=== PATIENT | female | born 1950 | race Caucasian/White ===

== ENCOUNTER 2021-04-17 09:45 | Emergency (ER) | payer MEDICAID ==
[~2021-04-17] VITALS: Ht 162.6 cm; Wt 72.7 kg
[2021-04-17] MEDS ORDERED: LISI-892 PO (09:57)
[2021-04-17] MEDS ORDERED: ATOR10TA84 PO (09:57)
[2021-04-17 11:08] LABS: BASOPHILS % (AUTO) 0.8 % (0.0-2.0); EOSINOPHILS % (AUTO) 4.4 % (1.0-6.0); HEMATOCRIT 36.2 % (36-46); HEMOGLOBIN 12.1 g/dL (12.0-16.0); LYMPHOCYTES # (AUTO) 1.8 K/uL (1.0-4.8); LYMPHOCYTES % (AUTO) 32.1 % (22.0-44.0); MEAN CORPUSCULAR HEMOGLOBIN 29.6 pg (26.0-34.0); MEAN CORPUSCULAR HGB CONC 33.4 G/dL (31.0-37.0); MEAN CORPUSCULAR VOLUME 89 fL (80-100); MONOCYTES # (AUTO) 0.4 K/uL (0.1-1.0); MONOCYTES % (AUTO) 7.4 % (2.0-9.0); NEUTROPHILS % (AUTO) 55.3 % (40.0-70.0); PLATELET COUNT (AUTO) 234 K/uL (150-450); RED BLOOD CELL COUNT(AUTO) 4.08 MIL/uL (4.00-5.20); RED CELL DISTRIBUTION WIDTH 13.5 % (11.5-14.5)
[2021-04-17 11:22] LABS: PROTHROMBIN TIME 10.4 SEC (9.4-11.6)
[2021-04-17 11:31] LABS: B-TYPE NATRIURETIC PEPTIDE 105 pg/mL (0-100); LACTIC ACID 0.6 mmol/L (0.4-2.0)
[2021-04-17 11:35] LABS: ANION GAP 8 mmol/L (8-16); CALCIUM, TOTAL 8.2 mg/dL (8.8-10.5); CARBON DIOXIDE 27 mmol/L (22-29); CHLORIDE 108 mmol/L (98-107); CREATININE 0.56 mg/dL (0.60-1.30); GLOMERULAR FILTR. RATE CALC > 60 mL/min (>60); GLUCOSE,RANDOM 99 mg/dL (70-110); POTASSIUM 4.1 mmol/L (3.5-5.1); SODIUM SERUM 143 mmol/L (136-145); UREA NITROGEN, BLOOD 19 mg/dL (7-18)
[2021-04-17 11:54] LABS: COVID AG,FIA SOURCE NASOPHARYNGEAL
[2021-04-17 11:59] LABS: ALANINE AMINOTRANSFERASE 34 U/L (12-78); ALBUMIN 3.2 g/dL (3.4-5.0); ALKALINE PHOSPHATASE 109 U/L (46-116); ASPARTATE AMINOTRANSFERASE 23 U/L (15-37); BILIRUBIN,TOTAL 0.4 mg/dL (0.1-1.0); CREATINE KINASE, TOTAL ONLY 81 U/L (26-192)
[2021-04-17] MEDS ORDERED: MORPHINE SULFATE 4 MG/ML SYRINGE IVP ONE (12:15)
[2021-04-17] MEDS ORDERED: ONDANSETRON HCL 4 MG/2 ML VIAL IVP ONE (12:15)
[2021-04-17 13:39] VITALS: BP 178/77
== END 2021-04-17 13:55 | disposition home or self-care (01) ==
LOC: EDBD 09:47 → EMS 09:47
DX: S00.03XA Contusion of scalp, initial encounter (principal); Z20.822 Contact with and (suspected) exposure to COVID-19; W19.XXXA Unspecified fall, initial encounter; Y93.89 Activity, other specified; Y92.89 Other specified places as the place of occurrence of the external cause; Y99.8 Other external cause status
CPT/HCPCS: 36415; 70450; 71045; 72125; 80053; 82550; 83605; 83880; 84484; 85025; 85610; 85730; 87426; 93005; 96374; 96375; 99285; J2270; J2405